=== PATIENT | female | born 1955 | race Caucasian/White ===

== ENCOUNTER 2019-06-12 06:00 | Outpatient (RCR) | payer BC, SELFPAY | END 2019-06-16 23:59 | disposition home or self-care (01) | LOC: SPT 06:00 | PROVIDERS: Referring Provider Nurse Practitioner Adult Health; Visit Provider Nurse Practitioner Adult Health | DX: Z47.1 Aftercare following joint replacement surgery (principal); Z96.652 Presence of left artificial knee joint | CPT/HCPCS: 97110; 97162 ==

== ENCOUNTER 2019-06-17 06:00 | Outpatient (RCR) | payer BC, SELFPAY | END 2019-07-15 23:59 | disposition home or self-care (01) | LOC: SPT 06:00 | PROVIDERS: PCP Nurse Practitioner Adult Health; Referring Provider Nurse Practitioner Adult Health; Visit Provider Nurse Practitioner Adult Health | DX: Z47.89 Encounter for other orthopedic aftercare (principal); Z96.652 Presence of left artificial knee joint | CPT/HCPCS: 97110 ==

== ENCOUNTER 2019-07-16 06:00 | Outpatient (RCR) | payer BC, SELFPAY | END 2019-08-15 23:59 | disposition home or self-care (01) | LOC: SPT 06:00 | PROVIDERS: PCP Nurse Practitioner Adult Health; Referring Provider Nurse Practitioner Adult Health; Visit Provider Nurse Practitioner Adult Health | DX: Z47.1 Aftercare following joint replacement surgery (principal); Z96.652 Presence of left artificial knee joint; R22.42 Localized swelling, mass and lump, left lower limb | CPT/HCPCS: 97110; 97140 ==

== ENCOUNTER 2020-04-03 11:48 | Outpatient (CLI) | payer BC, SELFPAY ==
--- NOTE | 2020-04-03 12:00 | MM_ITS ---
WS: [id number] Exam: [id number] Date/Time of Exam: 04/03/2020 12:00 PM Reason For Exam: Z12.39 - Encounter for other screening for malignant neoplasm of breast VIEWS: MLO and CC views both breasts. Comparison made with prior exam of 11/22/2017. Findings: There was no sign of mass, architectural distortion or suspicious calcification in either breast. Sc attered fibroglandular densities MM/[place] [id number] Impression: BI-RADS: 2-Benign FOLLOW-UP: 1 Year Follow-up This mammogram was also analyzed by the Computer Aided Detection System R2 Imag e Outside Operator.
== END 2020-04-03 11:49 | disposition home or self-care (01) ==
LOC: RADSHAW 11:52
PROVIDERS: Visit Provider Nurse Practitioner Women's Health
DX: Z12.31 Encounter for screening mammogram for malignant neoplasm of breast (principal)
CPT/HCPCS: 77067

== ENCOUNTER → 2022-04-16 15:30 | Outpatient (BNVA) | payer MEDICARE, SELFPAY | PROVIDERS: Visit Provider Nurse Practitioner Women's Health | DX: Z12.4 Encounter for screening for malignant neoplasm of cervix (principal) | CPT/HCPCS: 87624 ==

== ENCOUNTER 2022-05-12 14:53 | Outpatient (CLI) | payer BC, SELFPAY ==
--- NOTE | 2022-05-12 15:00 | XR_ITS ---
WS: [email or web address] SCREENING DEXA SCAN [employer] CLINICAL INFORMATION: Z78.0 - Asymptomatic menopausal state COMPARISON: 2018 FINDINGS: The L1-L4 bone mineral density measures 1.016 g/cm2. This corresponds to a T score score of -1.4 and Z score of -0.7. Left femoral neck bone mineral density measures 0.915 g/cm2. This corresponds to a T score of -0.7 an d Z score of -0.2. Right femoral neck bone mineral density measures 0.951 g/cm2. This corresponds to a T score -0.4of an d Z score of 0.1. Mean femoral neck bone mineral density measures 0.933 g/cm2. This corresponds to a T score of -0.6 an d Z score of -0.1. XR/XR DEXA axial skeleton* [id number] IMPRESSION: Osteopenia lumbar spine. Normal bone mineralization femoral necks. Patient's FRAX calculated 10 year probability for major osteoporotic fracture i s 9.9 % and osteoporotic hip fracture is 0.9%. Since 2018, bone mineral density lumbar spine has increased +9.7% and in the fe moral necks decreased -0.3%.
--- NOTE | 2022-05-12 15:04 | MM_ITS ---
WS: [email or web address] BILATERAL 3D TOMOSYNTHESIS DIGITAL SCREENING MAMMOGRAPHY WITH CAD CLINICAL INFORMATION: Z12.39 - Encounter for other screening for malignant neop... HISTORY: Screening mammogram. No current complaints. COMPARISON: April 03, 2020. TECHNIQUE: Bilateral CC and MLO views. FINDINGS: Scattered fibroglandular densities bilaterally. No suspicious focal mass, asymmetry, calcifications, or architectural distortion. No evidence of malignancy. Incidental benign calcifications. MM/[place] [id number] IMPRESSION: BI-RADS: 2-Benign FOLLOW UP: 1 Year Follow-up Recommend return to annual screening mammography.
== END 2022-05-12 14:54 | disposition home or self-care (01) ==
LOC: RAD 14:55
PROVIDERS: Visit Provider Nurse Practitioner Women's Health
DX: Z12.31 Encounter for screening mammogram for malignant neoplasm of breast (principal); M85.88 Other specified disorders of bone density and structure, other site; Z78.0 Asymptomatic menopausal state
CPT/HCPCS: 77063; 77067; 77080

== ENCOUNTER 2022-11-25 13:07 | Outpatient (RCR) | payer MEDICARE, SELFPAY | END 2022-12-14 23:59 | disposition home or self-care (01) | LOC: SPT 13:07 | PROVIDERS: Visit Provider Nurse Practitioner Adult Health | DX: Z47.1 Aftercare following joint replacement surgery (principal) | CPT/HCPCS: 97032; 97110; 97161 ==

== ENCOUNTER 2022-12-15 06:00 | Outpatient (RCR) | payer MEDICARE, SELFPAY | END 2023-01-14 23:59 | disposition home or self-care (01) | LOC: SPT 06:00 | PROVIDERS: Visit Provider Nurse Practitioner Adult Health | DX: Z47.1 Aftercare following joint replacement surgery (principal); Z96.652 Presence of left artificial knee joint | CPT/HCPCS: 97110 ==

== ENCOUNTER 2023-01-15 06:00 | Outpatient (RCR) | payer MEDICARE, SELFPAY | END 2023-02-13 23:59 | disposition home or self-care (01) | LOC: SPT 06:00 | PROVIDERS: Visit Provider Nurse Practitioner Adult Health | DX: Z96.652 Presence of left artificial knee joint (principal) | CPT/HCPCS: 97110 ==

== ENCOUNTER 2023-04-15 06:00 | Outpatient (RCR) | payer MEDICARE, SELFPAY | END 2023-04-15 23:59 | disposition home or self-care (01) | LOC: SPT 06:00 | PROVIDERS: Visit Provider Podiatrist | DX: M72.2 Plantar fascial fibromatosis (principal) | CPT/HCPCS: 97161 ==

== ENCOUNTER 2023-04-16 06:00 | Outpatient (RCR) | payer MEDICARE, SELFPAY | END 2023-05-16 23:59 | disposition home or self-care (01) | LOC: SPT 06:00 | PROVIDERS: Visit Provider Podiatrist | DX: M72.2 Plantar fascial fibromatosis (principal) | CPT/HCPCS: 97140 ==

== ENCOUNTER 2023-05-13 14:22 | Outpatient (CLI) | payer MEDICARE, SELFPAY ==
--- NOTE | 2023-05-13 14:25 | MM_ITS ---
WS: [email or web address] BILATERAL 3D TOMOSYNTHESIS DIGITAL SCREENING MAMMOGRAPHY WITH CAD CLINICAL INFORMATION: Z12.31 - Encounter for screening mammogram for malignant ... HISTORY: Screening mammogram. No current complaints. COMPARISON: 2021 TECHNIQUE: Bilateral CC and MLO views. FINDINGS: Scattered fibroglandular densities bilaterally. No suspicious focal mass, asymmetry, calcifications, or architectural distortion. No evidence of malignancy. A few incidental benign calcifications. IMPRESSION: MM/[place] [id number] BI-RADS: 2-Benign FOLLOW UP: 1 Year Follow-up Recommend return to annual screening mammography.
== END 2023-05-13 14:23 | disposition home or self-care (01) ==
LOC: RAD 14:23
PROVIDERS: Visit Provider Nurse Practitioner Women's Health
DX: Z12.31 Encounter for screening mammogram for malignant neoplasm of breast (principal)
CPT/HCPCS: 77063; 77067

== ENCOUNTER → 2024-04-28 15:01 | Outpatient (BNVA) | payer MEDICARE, SELFPAY | PROVIDERS: Visit Provider Nurse Practitioner Women's Health | DX: R39.9 Unspecified symptoms and signs involving the genitourinary system (principal); R82.90 Unspecified abnormal findings in urine | CPT/HCPCS: 84315; 87077; 87086; 87184 ==

== ENCOUNTER 2024-05-24 12:50 | Outpatient (CLI) | payer MEDICARE, SELFPAY ==
--- NOTE | 2024-05-24 13:00 | MM_ITS ---
WS: [id number] Bilateral screening 3D tomosynthesis digital mammogram, 05/24/2024 12:53 PM Clinical Data: Z12.31 - Encounter for screening mammogram for malignant ... Comparison: 05/13/2023, 05/12/2022, 04/03/2020, 03/24/2019, 11/22/2017, 04/14/2013, 04/15/2010, 9, 10/27/2006. Findings: No spiculated masses or clustered calcifications are seen. There are no secondary signs of carcinoma . MM/MM scr BI tomosynthesis [id number] Impression: Negative bilateral mammogram unchanged. Recommend annual screening mammograms. BIRADS: 1 - Negative. FOLLOW UP: 1 Year Follow-up DENSITY: There are scattered areas of fibroglandular density. The CAD piece work checker was used
--- NOTE | 2024-05-24 13:30 | XR_ITS ---
WS: [email or web address] SCREENING DEXA SCAN [employer] CLINICAL INFORMATION: Z78.0 - Asymptomatic menopausal state COMPARISON: 2021 FINDINGS: The L1-L4 bone mineral density measures 1.025 g/cm2. This corresponds to a T score score of -1.3 and Z score of -0.6. Left femoral neck bone mineral density measures 0.912 g/cm2. This corresponds to a T score of -0.8 an d Z score of -0.1. Right femoral neck bone mineral density measures 0.962 g/cm2. This corresponds to a T score -0.4of an d Z score of 0.3. Mean femoral neck bone mineral density measures 0.937 g/cm2. This corresponds to a T score of -0.6 an d Z score of 0.1. XR/XR DEXA axial skeleton* [id number] IMPRESSION: Osteopenia lumbar spine. Normal bone mineralization femoral necks. Patient's FRAX calculated 10 year probability for major osteoporotic fracture i s 11.0% and osteoporotic hip fracture is 1.4%. Bone mineral density lumbar spine increased 0.9% Bone mineral density femoral necks increased 0.4%
== END 2024-05-24 12:51 | disposition home or self-care (01) ==
LOC: RAD 12:51
PROVIDERS: Visit Provider Nurse Practitioner Women's Health
DX: Z12.31 Encounter for screening mammogram for malignant neoplasm of breast (principal); Z78.0 Asymptomatic menopausal state; R92.323 Mammographic fibroglandular density, bilateral breasts
CPT/HCPCS: 77063; 77067; 77080

== ENCOUNTER → 2024-05-29 14:37 | Outpatient (BNVA) | payer MEDICARE, SELFPAY | PROVIDERS: Visit Provider Nurse Practitioner Women's Health | DX: N39.3 Stress incontinence (female) (male) (principal); N32.81 Overactive bladder | CPT/HCPCS: 81000; 87086 ==